=== PATIENT | male | born 1985 | race Caucasian/White ===

== ENCOUNTER 2024-05-12 16:32 | Emergency (ER) | payer OTHER ==
[2024-05-12 16:39] VITALS: TEMP 97.5
--- NOTE | 2024-05-12 17:17 | ED ---
ENT HPI - General Chief complaint: ENT Stated complaint: Visual changes Time Seen by Provider: 05/12/24 16:40 Source: patient Mode of arrival: ambulatory Limitations: no limitations - History of Present Illness Initial comments: 38-year-old male presenting with chief complaint of facial swelling and chronic pain. Patient woke up today with swelling to the left side of the face, on the cheek near the nose. States that he is having some pain to the eye and around the eye as well. He has some blurry vision in the eye and states that he sees specks in his vision. No flashes. No curtain coming over the vision. He states "it feels like someone is trying to push my eye out from the back". Patient is currently at [facility] for opiate use. No IVDA. No fever. Reports no history of chronic health conditions. He does have pain with EOMs. No dental pain but does report some tingling along the gumline. - Related Data Home Medications Medication Instructions Recorded Confirmed Acetaminophen Tab [Tylenol] 650 mg PO Q4H PRN 05/12/24 05/12/24 Calcium Phos/D3/Magnesium/Zinc 1 tab PO TID PRN 05/12/24 05/12/24 [Emrxojf-Bmv-Ziyp-Vitamin D3] Chlorpheniramine Maleate 4 mg PO Q4H PRN 05/12/24 05/12/24 [Chlor-Trimeton] Hyoscyamine Sulfate [Levsin] 0.125 mg PO QID PRN 05/12/24 05/12/24 Ibuprofen [Motrin Ib] 600 mg PO Q6H PRN 05/12/24 05/12/24 Loperamide HCl [Imodium A-D] 4 mg PO QID PRN 05/12/24 05/12/24 Mag Hydrox/Aluminum Hyd/Simeth 30 ml PO Q4H PRN 05/12/24 05/12/24 [Mylanta Maximum Strength Liq] Mirtazapine [Remeron] 15 mg PO HS 05/12/24 05/12/24 Multivitamins, Thera [Multivitamin 1 tab PO DAILY 05/12/24 05/12/24 (formulary)] QUEtiapine [SEROquel] 100 mg PO HS 05/12/24 05/12/24 Thiamine [Vitamin B-1] 100 mg PO DAILY 05/12/24 05/12/24 buprenorphine HCL [Subutex] See Rx Instructions .ROUTE .COMPLEX 05/12/24 05/12/24 busPIRone HCl [Buspar] 10 mg PO TID 05/12/24 05/12/24 diphenhydrAMINE [Benadryl] 50 mg PO ONCE 05/12/24 05/12/24 ondansetron HCL [Ondansetron HCl] 8 mg PO Q6H PRN 05/12/24 05/12/24 predniSONE [Deltasone] 40 mg PO ONCE 05/12/24 05/12/24 Previous Rx's Medication Instructions Recorded Cefdinir [Omnicef] 300 mg PO Q12HR 7 Days #14 capsule 05/12/24 Sulfamethox-Tmp 800-160Mg [Bactrim 1 tab PO Q12HR 7 Days #14 tab 05/12/24 DS 800-160 mg] Allergies Allergy/AdvReac Type Severity Reaction Status Date / Time No Known Allergies Allergy Verified 05/12/24 16:39 Review of Systems ROS Statement: Those systems with pertinent positive or pertinent negative responses have been documented in the HPI. ROS Other: All systems not noted in ROS Statement are negative. Past Medical History Past Medical History: No Reported History History of Any Multi-Drug Resistant Organisms: MRSA Date of last positivie culture/infection: 2021 Past Surgical History: Appendectomy Past Psychological History: Anxiety, Bipolar, Depression, PTSD Smoking Status: Current every day smoker Past Alcohol Use History: None Reported Past Drug Use History: Opiates General Exam Limitations: no limitations General appearance: alert, in no apparent distress Head exam: Present: atraumatic, normocephalic, normal inspection Eye exam: Present: normal appearance, PERRL, EOMI, periorbital tenderness Pupils: Present: normal accommodation Expanded Eyelids: Normal Inspection: Bilateral Pupils: Regular, Round: Bilateral, Reactive: Bilateral Sclera/Conjunctival: Normal Inspection: Bilateral Visual acuity (R) = 20/: 20 Visual acuity (L) = 20/: 70 IOP (R) in mmH IOP (L) in mmH ENT exam: Present: normal oropharynx, mucous membranes moist Neck exam: Present: normal inspection. Absent: meningismus Respiratory exam: Absent: respiratory distress Cardiovascular Exam: Present: regular rate Neurological exam: Present: alert, oriented X3 Psychiatric exam: Present: normal affect, normal mood Skin exam: Present: warm, dry, normal color Course Vital Signs 05/12/24 05/12/24 05/12/24 16:35 18:20 20:25 Temperature 97.5 F L 97.5 F L Pulse Rate 79 67 78 Respiratory 20 18 18 Rate Blood Pressure 147/87 117/73 140/83 O2 Sat by Pulse 98 96 95 Oximetry Medical Decision Making - Medical Decision Making Was pt. sent in by a medical professional or institution (, [facility], [employer], urgent care, hospital, or [place] health care facility...) When possible be specific @ -[facility] Did you speak to anyone other than the patient for history (EMS, parent, family, police, friend...)? What history was obtained from this source @ -No Did you review nursing and triage notes (agree or disagree)? Why? @ -I reviewed and agree with nursing and triage notes Were old charts reviewed (outside hosp., previous admission, EMS record, old EKG, old radiological studies, urgent care reports/EKG's, [place] health care facility records)? Report findings @ -No old charts were reviewed Differential Diagnosis (chest pain, altered mental status, abdominal pain women, abdominal pain men, vaginal bleeding, weakness, fever, dyspnea, syncope, headache, dizziness, GI bleed, back pain, seizure, CVA, palpatations, mental health, musculoskeletal)? @ -Differential includes periorbital cellulitis, orbital cellulitis, optic neuritis, this is not an all-inclusive list EKG interpreted by me (3pts min.). @ -As above X-rays interpreted by me (1pt min.). @ -None done CT interpreted by me (1pt min.). @ -No acute process seen on CT of the brain without contrast. CT sinuses with contrast shows scattered mucosal thickening throughout the ethmoid air cells. Remaining paranasal sinuses appear clear. Right septal deviation and spur. Subtle right cheek swelling may be present U/S interpreted by me (1pt. min.). @ -None done What testing was considered but not performed or refused? (CT, X-rays, U/S, labs)? Why? @ -None What meds were considered but not given or refused? Why? @ -None Did you discuss the management of the patient with other professionals (professionals i.e. , PA, [employer] DES[employer]ER, lab, RT, psych nurse, social and political studies professor, health services administrator, teacher, youth officer, test case developer)? Give summary @ -No Was smoking cessation discussed for >3mins.? @ -No Was critical care preformed (if so, how long)? @ -No Were there social determinants of health that impacted care today? How? (Homelessness, low income, unemployed, alcoholism, drug addiction, transportation, low edu. Level, literacy, decrease access to med. care, nursing home, rehab)? @ -No Was there de-escalation of care discussed even if they declined (Discuss DNR or withdrawal of care, Hospice)? DNR status @ -No What co-morbidities impacted this encounter? (DM, HTN, Smoking, COPD, CAD, Cancer, CVA, ARF, Chemo, Hep., AIDS, mental health diagnosis, sleep apnea, morbid obesity)? @ -None Was patient admitted / discharged? Hospital course, mention meds given and route, prescriptions, significant lab abnormalities, going to OR and other pertinent info. @ -38-year-old male presenting with chief complaint of swelling to the left cheek. Thinks he may have gotten a bug bite. He is also having some blurry vision. History and physical examination are conducted. Initially nursing staff documents the patient has 20/70 vision in the left eye. Pressures are normal bilaterally. EOMI and PERRLA. There is mild swelling to the left cheek, no encroachment upon the eye. No leukocytosis or anemia. Initial potassium was hemolyzed, repeat is WNL at 4.6. CRP is less than 0.5. RPR is nonreactive. Negative CT of the brain and sinuses. I had the patient's nurse recheck his visual acuity, he is 20/15 in both eyes and bilaterally. He will be treated for periorbital cellulitis with Bactrim and cefdinir. Educated on today's findings and treatment plan. Discharged back to [facility]. Follow-up with PCP. Report back to ER with any new or worsening symptoms. Discussed return parameters and answered all questions. Patient conveyed verbal understanding and agreed to the plan. I discussed this case in detail with my attending Dr. Bajwa Undiagnosed new problem with uncertain prognosis? @ -No Drug Therapy requiring intensive monitoring for toxicity (Heparin, Nitro, Insulin, Cardizem)? @ -No Were any procedures done? @ -No Diagnosis/symptom? @ -Periorbital cellulitis Acute, or Chronic, or Acute on Chronic? @ -Acute Uncomplicated (without systemic symptoms) or Complicated (systemic symptoms)? @ -Uncomplicated Side effects of treatment? @ -No Exacerbation, Progression, or Severe Exacerbation? @ -No Poses a threat to life or bodily function? How? (Chest pain, USA, NC, pneumonia, PE, COPD, DKA, ARF, appy, cholecystitis, CVA, Diverticulitis, Homicidal, S uicidal, threat to staff... and all critical care pts) @ -Low likelihood, potential if not properly treated - Lab Data Result diagrams: 05/12/24 17:15 05/12/24 18:17 Lab Results 05/12/24 05/12/24 05/12/24 Range/Units 17:15 17:15 17:15 WBC 9.8 (3.8-10.6) k/uL RBC 5.45 (4.30-5.90) m/uL Hgb 16.8 (13.0-17.5) gm/dL Hct 49.6 (39.0-53.0) % MCV 91.1 (80.0-100.0) fL MCH 30.9 (25.0-35.0) pg MCHC 33.9 (31.0-37.0) g/dL RDW 12.9 (11.5-15.5) % Plt Count 251 (150-450) k/uL MPV 7.2 Neutrophils % 68 % Lymphocytes % 25 % Monocytes % 3 % Eosinophils % 3 % Basophils % 1 % Neutrophils # 6.6 (1.3-7.7) k/uL Lymphocytes # 2.4 (1.0-4.8) k/uL Monocytes # 0.3 (0-1.0) k/uL Eosinophils # 0.3 (0-0.7) k/uL Basophils # 0.1 (0-0.2) k/uL ESR 4 (0-15) mm/Hr Sodium 137 (137-145) mmol/L Potassium 6.0 H (3.5-5.1) mmol/L Chloride 102 (98-107) mmol/L Carbon Dioxide 27 (22-30) mmol/L Anion Gap 8 mmol/L BUN 19 (9-20) mg/dL Creatinine 0.84 (0.66-1.25) mg/dL Est GFR (CKD-EPI)AfAm >90 (>60 ml/min/1.73 sqM) Est GFR (CKD-EPI)NonAf >90 (>60 ml/min/1.73 sqM) Glucose 111 H (74-99) mg/dL Calcium 10.0 (8.4-10.2) mg/dL Total Bilirubin 1.1 (0.2-1.3) mg/dL AST 44 (17-59) U/L ALT 29 (4-49) U/L Alkaline Phosphatase 43 (38-126) U/L C-Reactive Protein (<1.0) mg/dL Total Protein 8.5 H (6.3-8.2) g/dL Albumin 5.0 (3.5-5.0) g/dL Treponema pallidum Ab (Nonreactive) 05/12/24 05/12/24 05/12/24 Range/Units 18:17 18:17 18:17 WBC (3.8-10.6) k/uL RBC (4.30-5.90) m/uL Hgb (13.0-17.5) gm/dL Hct (39.0-53.0) % MCV (80.0-100.0) fL MCH (25.0-35.0) pg MCHC (31.0-37.0) g/dL RDW (11.5-15.5) % Plt Count (150-450) k/uL MPV Neutrophils % % Lymphocytes % % Monocytes % % Eosinophils % % Basophils % % Neutrophils # (1.3-7.7) k/uL Lymphocytes # (1.0-4.8) k/uL Monocytes # (0-1.0) k/uL Eosinophils # (0-0.7) k/uL Basophils # (0-0.2) k/uL ESR (0-15) mm/Hr Sodium (137-145) mmol/L Potassium 4.6 (3.5-5.1) mmol/L Chloride (98-107) mmol/L Carbon Dioxide (22-30) mmol/L Anion Gap mmol/L BUN (9-20) mg/dL Creatinine (0.66-1.25) mg/dL Est GFR (CKD-EPI)AfAm (>60 ml/min/1.73 sqM) Est GFR (CKD-EPI)NonAf (>60 ml/min/1.73 sqM) Glucose (74-99) mg/dL Calcium (8.4-10.2) mg/dL Total Bilirubin (0.2-1.3) mg/dL AST (17-59) U/L ALT (4-49) U/L Alkaline Phosphatase (38-126) U/L C-Reactive Protein <0.5 (<1.0) mg/dL Total Protein (6.3-8.2) g/dL Albumin (3.5-5.0) g/dL Treponema pallidum Ab Nonreactive (Nonreactive) Disposition Clinical Impression: Periorbital cellulitis Disposition: HOME SELF-CARE Condition: Good Instructions (If sedation given, give patient instructions): Periorbital Cellulitis in Adults (ED) Additional Instructions: Follow-up with your PCP. Report back to ER with any new or worsening symptoms. Take medication as prescribed. Prescriptions: Sulfamethox-Tmp 800-160Mg [Bactrim DS 800-160 mg] 1 tab PO Q12HR 7 Days #14 tab Cefdinir [Omnicef] 300 mg PO Q12HR 7 Days #14 capsule Is patient prescribed a controlled substance at d/c from ED?: No Referrals: None,Stated [Primary Care Provider] - 1-2 days Rossi Caruso MD [STAFF PHYSICIAN] - 1-2 days
[2024-05-12 17:23] LABS: Basophils # (A) 0.1 k/uL (0-0.2); Basophils % (A) 1 %; Eosinophils # (A) 0.3 k/uL (0-0.7); Eosinophils % (A) 3 %; HCT 49.6 % (39.0-53.0); HGB 16.8 gm/dL (13.0-17.5); Lymphocytes # (A) 2.4 k/uL (1.0-4.8); Lymphocytes % (A) 25 %; MCH 30.9 pg (25.0-35.0); MCHC 33.9 g/dL (31.0-37.0); MCV 91.1 fL (80.0-100.0); Mean Platelet Volume 7.2; Monocytes # (A) 0.3 k/uL (0-1.0); Monocytes % (A) 3 %; Neutrophils # (A) 6.6 k/uL (1.3-7.7); Neutrophils % (A) 68 %; Platelet Count 251 k/uL (150-450); RBC 5.45 m/uL (4.30-5.90); RDW 12.9 % (11.5-15.5); WBC 9.8 k/uL (3.8-10.6)
[2024-05-12 17:34] LABS: ALT 29 U/L (4-49); African American GFR (CKD) >90 (>60 ml/min/1.73 sqM); Anion Gap 8 mmol/L; Blood Urea Nitrogen 19 mg/dL (9-20); Carbon Dioxide 27 mmol/L (22-30); Chloride 102 mmol/L (98-107); Glucose 111 mg/dL (74-99); Non-African American GFR(CKD) >90 (>60 ml/min/1.73 sqM); Sodium 137 mmol/L (137-145); Total Bilirubin 1.1 mg/dL (0.2-1.3)
[2024-05-12 17:57] LABS: AST 44 U/L (17-59); Alkaline Phosphatase 43 U/L (38-126); Total Protein 8.5 g/dL (6.3-8.2)
[2024-05-12] MEDS: KETOROLAC 15 MG/ML 1 ML VIAL IVP STA (17:57)
[2024-05-12 18:21] VITALS: RESP 18
--- NOTE | 2024-05-12 18:26 | CT ---
EXAMINATION TYPE: CT brain wo con DATE OF EXAM: 05/12/2024 6:16 PM COMPARISON: None. CLINICAL INDICATION: Male, 38 years old with history of ARAMBULA, eye pain, Headache, left side nasal pain and swelling under left eye since last night. TECHNIQUE: CT of the brain is performed utilizing 3 mm thick sections through the posterior fossa and 3 mm thick sections through the remaining calvarium. Study is performed within 24 hours of arrival to the hospital. Contrast used: mL of , (none if empty) CT DLP: combined 1493 mGycm, Automated exposure control for dose reduction was used. FINDINGS: No abnormal hyperdensity is present to suggest an acute intracranial hemorrhage. No mass lesion is evident. No acute infarcts are evident. Ventricles and sulci are appropriate for the patient age. Paranasal sinuses and mastoid air cells within the [id number] are clear. IMPRESSION: 1. No acute intracranial process. Follow up MRI can be performed as clinically indicated. [facility], , 05/12/2024 6:24 PM
--- NOTE | 2024-05-12 18:29 | CT ---
EXAMINATION TYPE: CT sinus w con DATE OF EXAM: 05/12/2024 6:16 PM COMPARISON: None. CLINICAL INDICATION: Male, 38 years old with history of L facial swelling w/ L eye pain, Headache, le ft side nasal pain and swelling under left eye since last night. TECHNIQUE: The paranasal sinuses are examined in the axial plane at 2 mm thick sections. Reconstruct ed images in the coronal plane were obtained. Contrast used:100 mL of Isovue 370 with IV Contrast, (none if empty) Oral contrast used: (none if empty) CT DLP: combined 1493 mGycm, Automated exposure control for dose reduction was used. FINDINGS: There is dental amalgam scatter artifact. There is some very subtle soft tissue swelling left cheek and orbit. No underlying abscess is identif ied. The maxillary sinuses are clear. Mucosal thickening through scattered ethmoid air cells greater on t he left. The sphenoid sinuses are clear. The frontal sinuses are clear. The septum is evaluated. There is septal deviation to the right. Posterior right septal spur is also present. The ostiomeatal units are patent. IMPRESSION: 1. Scattered mucosal thickening throughout ethmoid air cells. Remaining paranasal sinuses appear arnaldo ar. 2. Right septal deviation and spur. 3. Subtle right cheek swelling may be present. [facility], , 05/12/2024 6:27 PM
[2024-05-12 20:28] VITALS: BP 140/83; PULSE 78
== END 2024-05-12 20:25 | disposition home or self-care (01) ==
LOC: EC 16:32
DX: L03.213 Periorbital cellulitis (principal); F17.200 Nicotine dependence, unspecified, uncomplicated
CPT/HCPCS: 36415; 80053; 85652; 84132; 85025; 86140; 86780; 70450; 70487; 99284; 96374; J1885; Q9967